=== PATIENT | male | born 1990 | race African-American/Black ===

== ENCOUNTER → 2018-06-19 | Emergency (ER) | payer SELFPAY ==
[~2018-06-19] VITALS: Ht 188 cm; Wt 91.8 kg
[2018-06-19 20:15] VITALS: BP 138/75; TEMP 98.7
[2018-06-19 22:20] VITALS: PULSE 83
== END ==
LOC: COL.ER 20:10
DX: J06.9 Acute upper respiratory infection, unspecified (principal)